=== PATIENT | female | born 1975 | race African-American/Black ===

== ENCOUNTER 2020-03-05 15:08 | Inpatient (IN) | payer MEDICAID ==
[~2020-03-05] VITALS: Ht 170.2 cm; Wt 99.3 kg
[~2020-03-05 15:08] MED LIST: INSASP; METF500T
[2020-03-05] MEDS ORDERED: ONDANSETRON HCL 4MG/2ML INJ IV ONE (16:00)
[2020-03-05 16:26] LABS: BASOPHILS % 0.6 % (0.0-2.0); EOSINOPHILS % 0.6 % (0.0-5.0); HEMATOCRIT. 23.5 % (36.0-48.0); HEMOGLOBIN. 7.5 g/dL (12.0-16.0); LYMPHOCYTES % 12.7 % (20.0-50.0); MEAN CORPUSCULAR HEMOGLOBIN 24.2 pg (28.0-32.0); MEAN CORPUSCULAR VOLUME 75.8 fL (81.0-99.0); MEAN PLATELET VOLUME 8.4 fl (7.4-10.4); MONOCYTES % 8.8 % (2.0-8.0); NEUTROPHILS % 77.3 % (40.0-76.0); PLATELET 131 x1000/uL (130-400); RED CELL DISTRIBUTION WIDTH 27.8 % (11.6-14.6)
[2020-03-05 16:27] LABS: CHLORIDE 112 mEq/L (98-107)
[2020-03-05 16:28] LABS: INR 1.1; PARTIAL THROMBOPLASTIN TIME 30.5 sec (23.4-31.0); PROTHROMBIN TIME 11.4 sec (9.6-11.0)
[2020-03-05] MEDS ORDERED: HEPARIN 1000 UNITS/ML 10ML ONE (17:05)
[2020-03-05] MEDS ORDERED: SODIUM BICARBONATE 4% (2.4MEQ) 5ML VIAL IV ONE (17:05)
[2020-03-05] MEDS ORDERED: LIDOCAINE HCL 1% 20ML VIAL (Pyxis) INJ ONE (17:05)
[2020-03-05] MEDS ORDERED: CALCIUM GLUCONATE 1,000 MG in DEXTROSE 5% WATER 50 ML IV ONE (17:45)
[2020-03-05 18:02] LABS: PLATELET ESTIMATE NORMAL
[2020-03-05] MEDS ORDERED: ASPIRIN 81MG TABLET PO ONE (19:45)
[2020-03-05 22:30] VITALS: BP 188/98
[2020-03-05 23:30] VITALS: BP 188/88
[2020-03-06] VITALS (10 sets, daily range): BP systolic 137–188; BP diastolic 67–98
[2020-03-06] MEDS ORDERED: CLONIDINE 0.1MG TABLET PO NR (01:26)
[2020-03-06] MEDS ORDERED: CLONIDINE 0.1MG TABLET PO PRN (01:30)
[2020-03-06] MEDS ORDERED: DIPHENHYDRAMINE 50MG/ML VIAL IV PRN (01:45)
[2020-03-06] MEDS ORDERED: DEXTROSE 50% WATER 50ML SYRINGE IV PRN (01:45)
[2020-03-06] MEDS ORDERED: LOSA1TAB37 MT (05:48)
[2020-03-06] MEDS: SODIUM BICARBONATE 650 MG TABLET PO SCH ×4 (06:04→23:38)
[2020-03-06 06:33] LABS: BASOPHILS % 0.6 % (0.0-2.0); EOSINOPHILS % 1.4 % (0.0-5.0); HEMATOCRIT. 25.3 % (36.0-48.0); HEMOGLOBIN. 7.9 g/dL (12.0-16.0); MEAN CORPUSCULAR HEMOGLOBIN 24.1 pg (28.0-32.0); MEAN CORPUSCULAR VOLUME 77.1 fL (81.0-99.0); MEAN PLATELET VOLUME 8.6 fl (7.4-10.4); MONOCYTES % 7.4 % (2.0-8.0); NEUTROPHILS % 78.6 % (40.0-76.0); PLATELET 139 x1000/uL (130-400); RED BLOOD CELL COUNT 3.28 mill/uL (4.2-5.4); RED CELL DISTRIBUTION WIDTH 28.1 % (11.6-14.6)
[2020-03-06] MEDS: BLOOD SUGAR DIAGNOSTIC STRIP TEST SCH ×4 (07:20→20:10)
[2020-03-06] MEDS: INSULIN LISPRO 100 UNITS/ML SUBCUT SCH ×4 (07:50→20:10)
[2020-03-06] MEDS: AMLODIPINE 5MG TABLET PO SCH ×2 (08:20→20:37)
[2020-03-06] MEDS: PANTOPRAZOLE 40MG DR TABLET PO SCH (08:21)
[2020-03-06 08:30] LABS: PHOSPHORUS 9.4 mg/dL (2.5-4.9)
[2020-03-06] MEDS ORDERED: SODIUM BICARBONATE 650 MG TABLET PO NR (10:00)
[2020-03-06] MEDS: CALCIUM ACETATE 667MG CAPSULE PO SCH ×3 (10:23→17:22)
[2020-03-06 11:50] LABS: HEPATITIS B SURFACE ANTIGEN NEGATIVE
[2020-03-06 12:20] LABS: HEPATITIS A AB IGM NEGATIVE (NEGATIVE)
[2020-03-06] MEDS: ONDANSETRON HCL 4MG/2ML INJ IV PRN (12:32)
[2020-03-06] MEDS: ACETAMINOPHEN 650MG/20.3ML UDC PO PRN (20:37)
[2020-03-07] VITALS (15 sets, daily range): BP systolic 143–187; BP diastolic 63–90
[2020-03-07] MEDS: ACETAMINOPHEN 650MG/20.3ML UDC PO PRN ×2 (02:58→19:26)
[2020-03-07] MEDS: BLOOD SUGAR DIAGNOSTIC STRIP TEST SCH ×4 (06:48→20:34)
[2020-03-07] MEDS: PANTOPRAZOLE 40MG DR TABLET PO SCH (06:48)
[2020-03-07] MEDS: SODIUM BICARBONATE 650 MG TABLET PO SCH ×3 (06:48→18:09)
[2020-03-07] MEDS: INSULIN LISPRO 100 UNITS/ML SUBCUT SCH ×4 (07:32→20:35)
[2020-03-07] MEDS: AMLODIPINE 5MG TABLET PO SCH ×2 (08:53→20:37)
[2020-03-07] MEDS: CALCIUM ACETATE 667MG CAPSULE PO SCH ×3 (08:53→18:09)
[2020-03-07 11:03] LABS: BASOPHILS % 0.7 % (0.0-2.0); EOSINOPHILS % 1.7 % (0.0-5.0); HEMATOCRIT. 22.5 % (36.0-48.0); HEMOGLOBIN. 7.4 g/dL (12.0-16.0); LYMPHOCYTES % 16.5 % (20.0-50.0); MEAN CORPUSCULAR HEMOGLOBIN 24.5 pg (28.0-32.0); MEAN CORPUSCULAR VOLUME 74.6 fL (81.0-99.0); MEAN PLATELET VOLUME 8.3 fl (7.4-10.4); MONOCYTES % 12.6 % (2.0-8.0); NEUTROPHILS % 68.5 % (40.0-76.0); PLATELET 132 x1000/uL (130-400); RED BLOOD CELL COUNT 3.02 mill/uL (4.2-5.4); RED CELL DISTRIBUTION WIDTH 27.9 % (11.6-14.6)
[2020-03-07] MEDS ORDERED: POTASSIUM CHLORIDE 20MEQ TABLET SR PO NR (12:00)
[2020-03-07] MEDS ORDERED: SODIUM BICARBONATE 4% (2.4MEQ) 5ML VIAL IV ONE (12:01)
[2020-03-07] MEDS ORDERED: LIDOCAINE HCL 1% 20ML VIAL (Pyxis) INJ ONE (12:02)
[2020-03-07] MEDS ORDERED: HEPARIN 1000 UNITS/ML 10ML ONE (12:04)
[2020-03-07] MEDS ORDERED: CEFAZOLIN 1000MG PREMIX 50 ML IV NR (12:10)
[2020-03-07] MEDS ORDERED: FENTANYL CITRATE/PF 50MCG/ML 2ML VIAL ONE (12:10)
[2020-03-07] MEDS ORDERED: CEFAZOLIN 1000MG PREMIX 50 ML IV ONE (12:10)
[2020-03-07] MEDS ORDERED: FENTANYL CITRATE/PF 50MCG/ML 2ML VIAL IV NR (12:10)
[2020-03-07] MEDS ORDERED: ONDANSETRON HCL 4MG/2ML INJ ONE (12:58)
[2020-03-07] MEDS: ONDANSETRON HCL 4MG/2ML INJ IV PRN (13:04)
[2020-03-08] VITALS: BP 136/77
[2020-03-08 04:00] VITALS: BP 132/82
[2020-03-08] MEDS: BLOOD SUGAR DIAGNOSTIC STRIP TEST SCH (06:25)
[2020-03-08] MEDS: PANTOPRAZOLE 40MG DR TABLET PO SCH (06:25)
[2020-03-08] MEDS: INSULIN LISPRO 100 UNITS/ML SUBCUT SCH (07:32)
[2020-03-08 08:00] VITALS: BP 142/74
[2020-03-08] MEDS: AMLODIPINE 5MG TABLET PO SCH (08:23)
[2020-03-08] MEDS: CALCIUM ACETATE 667MG CAPSULE PO SCH (08:23)
[2020-03-08 09:00] LABS: HEMATOCRIT 23.9 % (36.0-48.0); HEMOGLOBIN 7.8 g/dL (12.0-16.0); MEAN CORPUSCULAR HEMOGLOBIN 24.2 pg (28.0-32.0); MEAN CORPUSCULAR VOLUME 74.8 fL (81.0-99.0); PLATELET 152 x1000/uL (130-400); RED CELL DISTRIBUTION WIDTH 27.8 % (11.6-14.6)
== END 2020-03-08 10:30 | disposition left against medical advice (07) | DRG 470 ==
LOC: ER 15:15 → 6WST 16:52 → ENRESERV 21:47
PROVIDERS: ADMIT Internal Medicine; ATTEND Internal Medicine
PROC: B54MZZA Ultrasonography of Right Upper Extremity Veins, Guidance (ICD-10-PCS; principal; 2020-03-05)
PROC: 05HY33Z Insertion of Infusion Device into Upper Vein, Percutaneous Approach (ICD-10-PCS; 2020-03-05)
PROC: 0JH63XZ Insertion of Tunneled Vascular Access Device into Chest Subcutaneous Tissue and Fascia, Percutaneous Approach (ICD-10-PCS; 2020-03-07)
PROC: 02HV33Z Insertion of Infusion Device into Superior Vena Cava, Percutaneous Approach (ICD-10-PCS; 2020-03-07)
PROC: B5181ZA Fluoroscopy of Superior Vena Cava using Low Osmolar Contrast, Guidance (ICD-10-PCS; 2020-03-07)
PROC: B548ZZA Ultrasonography of Superior Vena Cava, Guidance (ICD-10-PCS; 2020-03-07)
PROC: 5A1D70Z Performance of Urinary Filtration, Intermittent, Less than 6 Hours Per Day (ICD-10-PCS; 2020-03-08)
DX: I12.0 Hypertensive chronic kidney disease with stage 5 chronic kidney disease or end stage renal disease (principal); E87.6 Hypokalemia; N17.9 Acute kidney failure, unspecified; E11.22 Type 2 diabetes mellitus with diabetic chronic kidney disease; N18.6 End stage renal disease; D63.8 Anemia in other chronic diseases classified elsewhere; E66.9 Obesity, unspecified; E83.51 Hypocalcemia; Z20.828 Contact with and (suspected) exposure to other viral communicable diseases; N25.81 Secondary hyperparathyroidism of renal origin; E87.2 Acidosis; I25.10 Atherosclerotic heart disease of native coronary artery without angina pectoris; I16.0 Hypertensive urgency; Z68.34 Body mass index [BMI] 34.0-34.9, adult; Z99.2 Dependence on renal dialysis; Z79.84 Long term (current) use of oral hypoglycemic drugs; Z79.4 Long term (current) use of insulin
CPT/HCPCS: 36415; 36558; 36589; 71045; 77001; 80048; 80053; 80061; 82962; 83036; 83970; 84100; 84484; 85025; 85027; 86705; 86709; 86803; 86850; 86900; 87340; 87635; 93005; 99152; 99153; 99285; C1750; C1752; C1769; J0610; J0690; J1644; J2405; J3010; J3490; J7060; L8514; G0500